=== PATIENT | female | born 1940 | race Caucasian/White ===

== ENCOUNTER → 2016-08-12 | Day surgery (SDC) | payer MEDICARE, BC ==
[~2016-08-12] MED LIST: ARICEPT5 MG PO; ARTHRITIS MEDICINE; ASPIRIN EC81 M1 PO; ASPIRIN PO; ATACAND PO; ATENOLOL PO; BENADRYL25 M1 PO; BENADRYL25 M3 PO; BENTYL10 M1 PO; BENTYL10 MG PO; CALCIUM 5001 TAB PO; CALCIUM 600 + D1 TA1 PO; CALCIUM 600 +1 EAC4 PO; FOSAMAX PO; MEDROL DOSEPAK4 MG PO; NORVASC2.5 MG PO; PRAVACHOL20 MG PO; PRAVASTATIN SOD20 MG PO; PRAVASTATIN SOD40 MG PO; PROTONIX PO; SUCRALFATE1 G/10 ML PO; TENORMIN50 MG PO; TRAMADOL HCL50 M1 PO; TRAMADOL HCL50 M2 PO; TRIAMTERENE-HC1 EACH PO; ULTRAM PO; VITAMIN B12-FO1 EACH PO; VITAMIN D-32000 UNI2 PO; VITAMIN D1000 UNIT PO; [UNRECOGNIZED DRUG - REMARK]
--- NOTE | ~2016-08-12 | OR ---
Unit #: [id number] #: [id number] Patient: DANYEL MALLOY [id number] [address] [address] [id number] O MR#: [id number] NAME: DANYEL MALLOY ROOM: Date of Procedure: 08/12/2016 Admission Date: 08/12/2016 Surgeon: Pierce Wagner M.D. : 1940 Attending Physician: Howard Wagner Primary Care Physician: Daniel Foley M.D. SURGERY CENTER OPERATIVE NOTE PROCEDURE PERFORMED Caudal epidural steroid injection under x-ray guided needle placement with provider administered conscious sedation. PREOPERATIVE DIAGNOSES 1. Acute lumbar radiculitis. 2. Spinal stenosis, lumbosacral spine. 3. Degenerative joint disease, lumbosacral spine. 4. Degenerative disk disease, lumbosacral spine. INDICATIONS FOR PROCEDURE The patient presents today with longstanding history of chronic lumbar radicular pain secondary to her underlying degenerative processes and spinal stenosis. She is generally fairly well managed medically with ongoing continuous conservative measures; however, she does occasionally experience exacerbations, which to date have only responded to interventional pain management procedures. Her usual amount relief with interventional procedure is 60% to 80% for 8 to 10 weeks. She is currently presenting today with an exacerbation which is consistent with past exacerbations and has broken through her usual and ongoing continuous services and medical management. After discussing risks and benefits of proceeding today with a lumbar approach epidural steroid injection, the patient agreed this would be appropriate course of action. DESCRIPTION OF PROCEDURE She was then taken to the operating room, where she was prepped and draped in a sterile manner. Standard monitors were applied. She was sedated with 1 mg of IV Versed and after approximately 2 to 3 attempts at the L4-L5 level, the decision was made to advance to a caudal approach epidural steroid injection. The caudal area was re-prepped. There was re-draping and gloving, and the caudal epidural space was accessed with a little or no trouble under x-ray guidance. Total x-ray time for this procedure was 8 seconds. Following successful needle placement at the caudal level confirmed with the injection of 2 mL of Omnipaque, the patient received an injectate containing 8 mL normal saline and 80 mg of methylprednisolone. She tolerated this procedure well. She was discharged home with followup instructions, which included an offer to return to this clinic as early as 11/25/2016. The patient was instructed if she was ever asymptomatic at that time of being scheduled appointment to simply not keep that appointment and to follow up with this clinic or her primary and/or referring provider as needed. She is also instructed if she felt she was not getting benefit from these injections to simply stop these injections and let her primary provider and also she Unit #: [id number] #: [id number] Patient: DANYEL MALLOY could potentially be referred elsewhere. Dictated by... Anna Godinez/joe TD: 08/12/2016 23:46 JOB #: [id number] SURGERY CENTER OPERATIVE NOTE Page 1 of 1 X Howard Wagner MD X PROCEDURE OPERATIVE NOTE
== END | disposition home or self-care (01) ==
LOC: CCSC 08:10
DX: G89.29 Other chronic pain (principal); M51.17 Intervertebral disc disorders with radiculopathy, lumbosacral region; M48.07 Spinal stenosis, lumbosacral region; M19.90 Unspecified osteoarthritis, unspecified site; Z88.1 Allergy status to other antibiotic agents; Z88.2 Allergy status to sulfonamides; Z90.710 Acquired absence of both cervix and uterus; Z90.49 Acquired absence of other specified parts of digestive tract; Z98.49 Cataract extraction status, unspecified eye; Z98.890 Other specified postprocedural states
CPT/HCPCS: J1040; J2250

== ENCOUNTER → 2016-11-25 | Day surgery (SDC) | payer MEDICARE, BC ==
--- NOTE | ~2016-11-25 | OR ---
Unit #: [id number] #: [id number] Patient: DANYEL MALLOY [id number] [address] [place], [place] [address] [id number] O MR#: [id number] NAME: DANYEL MALLOY ROOM: Date of Procedure: 11/25/2016 Admission Date: 11/25/2016 Surgeon: Pierce Wagner M.D. : 1940 Attending Physician: Pierce Wagner M.D. Referring Physician: Pierce Wagner M.D. Primary Care Physician: Daniel Foley M.D. SURGERY CENTER OPERATIVE NOTE PROCEDURE PERFORMED Lumbar epidural steroid injection under x-ray guided needle placement with provider administered conscious sedation. PREOPERATIVE DIAGNOSES 1. Acute lumbar radiculitis. 2. Spinal stenosis, lumbosacral spine. 3. Degenerative joint disease, lumbosacral spine. 4. Degenerative disk disease, lumbosacral spine. INDICATIONS FOR PROCEDURE The patient presents today with longstanding history of chronic lumbar radicular pain secondary to her underlying degenerative processes. She is generally fairly well managed medically, but does occasionally experience exacerbations, which to date have only responded to epidural steroid injections. Her usual amount of relief is 60% to 80% for 6 to 8 weeks. She presents today with an exacerbation, which has broken through her ongoing continuous therapy of medical management and self-directed physical activity. She is experiencing pain to the point that is negatively impacting her activities of daily living and is consistent with past pains as well as consistent with her x-ray findings. After discussing risks and benefits of proceeding today with a lumbar approach epidural steroid injection, the patient agreed this would be the appropriate course of action. DESCRIPTION OF PROCEDURE She was then taken to the operating room, where she was prepped and draped in sterile manner. Standard monitors were applied. She was sedated with 1 mg of IV Versed initially and required an additional 1 mg of IV Versed throughout the duration of procedure. Lumbar epidural space was accessed at L4-L5 level using loss of resistance technique and x-ray guidance. Needle placement was confirmed with injection of 2 mL of Omnipaque. There was good superior and inferior flow at this L4-L5 level needle placement. Following successful needle placement confirmation, the patient received an injectate containing 4 mL normal saline and 40 mg of methylprednisolone. She tolerated this procedure well. She was discharged home with followup instructions, which include an offer to return to this clinic as early as 03/03/2017. Total x-ray time for today's procedure was 4 seconds. Dictated by... Pierce Wagner M.D. Unit #: [id number] #: [id number] Patient: DANYEL MALLOY MARLENE/joe TD: 11/25/2016 18:41 JOB #: [id number] CC: Daniel Foley M.D. SURGERY CENTER OPERATIVE NOTE Page 1 of 1 X Howard Wagner MD X PROCEDURE OPERATIVE NOTE
== END | disposition home or self-care (01) ==
LOC: CCSC 09:15
DX: M47.27 Other spondylosis with radiculopathy, lumbosacral region (principal); M51.17 Intervertebral disc disorders with radiculopathy, lumbosacral region
CPT/HCPCS: J1040; J2250

== ENCOUNTER → 2016-12-04 | Outpatient (CLI) | payer MEDICARE, BC ==
--- NOTE | ~2016-12-04 | MR18 ---
[facility] A Service of [facility] RADIOLOGY TEXT RESULTS PATIENT: DANYEL MALLOY LOCATION: [facility] : 38 UNIT #: [id number] AGE: [address]: Daniel Foley MD SEX: F ORDER DR: [id number] [facility] [address] [place], [place] [address] [id number] O MR#: [id number] Acc #: [id number] NAME: DANYEL MALLOY : 1940 SEX: F STUDY DATE/TIME: 12/04/2016 7:19 UNIT: [facility] ROOM: STUDY DESCRIPTION: MR Brain Wo Contrast Attending Physician: Daniel Foley M.D. Referring Physician: Daniel Foley M.D. Ordering Physician: Daniel Foley M.D. Primary Care Physician: Daniel Foley M.D. MRI CENTER REPORT This report is preliminary unless electronic signature is present. EXAM MRI of the brain without contrast dated 12/04/2016 COMPARISON MRI of the brain without contrast dated 02/21/2016 HISTORY Memory loss for a year. Dizziness for a month and pressure in the head. FINDINGS Multisequence multiplanar imaging of the brain was obtained without contrast. No acute stroke, space-occupying intracranial mass, mass effect, midline shift or hydrocephalus. Subtle hyperintense T2-signal lesions are noted in the white matter and juan francisco, relatively stable. Diffuse age-appropriate parenchymal volume loss is seen, relatively more prominent along the convexity involving bifrontal parietal lobes. It does not appear to have significantly worsened when compared to the prior study. Thick slices through the sella with the pituitary gland, pineal region and internal auditory canals with the inner ear structures are grossly unremarkable. Mild degenerative changes are in the cervical spine. IMPRESSION 1. No acute intracranial abnormality. 2. No significant interval change. 3. Redemonstrated are the hyperintense T2 nonspecific signal lesions scattered in the brain predominately involving the white matter and to a lesser extent in the juan francisco. They are likely related to chronic microvascular ischemic change based on age and statistics. Dictated by... Heather Lutz M.D. THIS IS AN ELECTRONICALLY VERIFIED REPORT [facility] A Service of [facility] RADIOLOGY TEXT RESULTS PATIENT: DANYEL MALLOY LOCATION: [facility] : 38 UNIT #: [id number] AGE: [address]: Daniel Foley MD SEX: F ORDER DR: Heather Lutz M.D. at 12/10/2016 1:16 PM CPR/jw TD: 12/08/2016 09:37 JOB #: [id number] MRI CENTER REPORT Page 1 of 1 COPY
== END | disposition home or self-care (01) ==
LOC: CMRI 06:53
DX: F03.90 Unspecified dementia, unspecified severity, without behavioral disturbance, psychotic disturbance, mood disturbance, and anxiety (principal); G93.9 Disorder of brain, unspecified
CPT/HCPCS: 70551